=== PATIENT | female | born 1945 | race Caucasian/White ===

== ENCOUNTER → 2019-10-14 14:17 | Outpatient (CLI) | payer MEDICARE, OTHER, SELFPAY ==
--- NOTE | 2019-10-14 | DI.CT.S_ITS ---
PROCEDURE: CT LUMBAR SPINE WO CON INDICATIONS: Other spondylosis with radiculopathy, lumbosacral TECHNIQUE: Noncontrast 3 mm thick sections acquired from the T12 level to the sacrum. Sagittal and coronal reformats were constructed. For radiation dose reduction, the following was used: automated exposure control. COMPARISON: Outside Film, CR, XR LUMBAR SPINE 2 OR 3 VIEWS, 07/08/2019, 8:50. FINDINGS: Image quality: Excellent. Bones: There are 6 jja-vdv-padekim lumbar vertebral bodies. In order to be consistent with the prior study, the lowest 5 vertebrae are described as L1-L5, and the most superior nonrib-bearing vertebra is labeled as T12. Using this numbering system, there is mild degenerative anterolisthesis of L4 on L5, measuring 7 mm. There is trace degenerative retrolisthesis of L2 on L3, of L1 on L2, and T12 on L1. There is an old mild compression fracture of T11. No acute vertebral body compression fractures. No suspicious lytic or blastic bony lesions. No pars defects. T9-T10: No canal stenosis or foraminal stenosis. T10-T11: No canal stenosis or foraminal stenosis. T11-T12: No canal stenosis or foraminal stenosis. T12-L1: No canal stenosis or foraminal stenosis. L1-L2: Severe disc height loss. No canal stenosis. Moderate bilateral foraminal stenosis. L2-L3: Disc bulge. Moderate canal stenosis. Facet and ligament hypertrophy. Mild bilateral foraminal stenosis. L3-L4: Disc bulge and facet and ligament hypertrophy result in severe canal stenosis. Mild bilateral foraminal stenosis. L4-L5: Severe bilateral facet arthropathy. Mild anterolisthesis of L4 on L5. Posterior disc bulge. Mild canal stenosis. Mild to moderate bilateral foraminal stenosis. L5-S1: Bilateral facet hypertrophy. No canal stenosis. Mild bilateral foraminal stenosis. Soft tissues: No retroperitoneal masses or hematomas. Visualized aorta is normal in caliber. IMPRESSION: 1. Please note that there are actually 6 mws-kwm-ajzdoah lumbar vertebral bodies, but they aren't labeled as T12-L5. Therefore, if surgery is planned, careful correlation between imaging at the time of surgery and today's CT imaging is recommended. 2. Using the above numbering system, there is moderate canal stenosis at L2-L3, severe canal stenosis at L3-L4, and mild canal stenosis at L4-L5. 3. The level which is labeled as L4-L5 is the level that has 7 mm of anterolisthesis. Dictated by: Johan Mendez M.D. on 10/14/2019 at 17:22 Approved by: Johan Mendez M.D. on 10/14/2019 at 17:31
== END ==
PROVIDERS: PCP Internal Medicine; Visit Provider Orthopaedic Surgery Orthopaedic Surgery of the Spine
DX: M47.27 Other spondylosis with radiculopathy, lumbosacral region (principal); M47.26 Other spondylosis with radiculopathy, lumbar region; M48.061 Spinal stenosis, lumbar region without neurogenic claudication; M48.07 Spinal stenosis, lumbosacral region; M43.16 Spondylolisthesis, lumbar region
CPT/HCPCS: 72131

== ENCOUNTER → 2020-03-19 09:29 | Outpatient (CLI) | payer MEDICARE, OTHER, SELFPAY ==
[2020-03-19 23:34] LABS: COVID19 Sendout Not Detected (Not Detect)
== END ==
PROVIDERS: PCP Internal Medicine; Visit Provider Physician Assistant
DX: Z01.812 Encounter for preprocedural laboratory examination (principal)
CPT/HCPCS: 87635

== ENCOUNTER 2020-03-21 06:01 | Inpatient (IN) | payer MEDICARE, OTHER, SELFPAY ==
[2020-03-13 13:48] VITALS: BMI 34.7
[2020-03-21] VITALS (24 sets, daily range): BP systolic 75–165; BP diastolic 40–89; PULSE 82–101; RESP 10–28; TEMP 36.4–36.9; O2SAT 83–98; BMI 35.6
--- NOTE | 2020-03-21 | DI.RAD.S_ITS ---
PROCEDURE: XR LUMBAR SPINE 2-3V INDICATIONS: L3-4, L4-5 TLIF TECHNIQUE: 2 views of the lumbar spine were acquired. COMPARISON: None. FINDINGS: Bones: Postoperative study with transverse pedicle screws and vertical fixation rods crossing from L3-L5, with interbody cage disc prostheses devices at L3-4 and L4-L5 centrally positioned.. Soft tissues: Overlying bowel gas pattern is normal. No suspicious soft tissue calcifications. IMPRESSION: Normal alignment established after L3-L5 posterior fusion and interbody disc prosthesis placement. Dictated by: Jagjit Jalloh M.D. on 03/21/2020 at 11:28 Approved by: Jagjit Jalloh M.D. on 03/21/2020 at 11:29
[2020-03-21] MEDS: ALBUTEROL/IPRATROPIUM 3 ML AMPUL INH ×3 (07:31→20:49)
[2020-03-21] MEDS: LACTATED RINGERS 1,000 ML 42 ML IV ×3 (07:31→11:58)
[2020-03-21] MEDS: CLINDAMYCIN 900 MG/50 ML PIGGYBACK 50 MG IV ×2 (07:45→16:51)
--- NOTE | 2020-03-21 08:21 | SUR.OPER ---
Prone on spine table, head in foam head support, padded chest and pelvic supports, gel pad at knees, lower legs supported by pillows; nipples, genitalia and toes free of pressure, arms secured on foam padded arm boards at <90 degrees abduction. Tape over blanket at thigh secured to table.
[2020-03-21] MEDS: BUPIVACAINE LIPOSOME 266 MG/20 ML VIAL INJ (09:00)
[2020-03-21] MEDS: BUPIVACAINE 0.25% W/ EPI (PF) 10 ML VIAL 30 ML INJ (09:00)
--- NOTE | 2020-03-21 11:43 | PM.PREOP ---
Pre-operative Note COVID-19 COVID-19 status: Negative Result date/Date tested (Pos, Neg/Pending): 03/19/20 Interval Note History & Physical reviewed/Exam performed by Physician: Yes Changes to H&P: No
--- NOTE | 2020-03-21 11:44 | PM.OP.1 ---
Operative Date/Time/Diagnoses Date of procedure: 03/21/20 Time of procedure: 07:44 Pre-op diagnosis: 1. L3-4, L4-5 spondylolisthesis 2. L3-4, L4-5 spinal stenosis Post-op diagnosis: same Procedure & Clinicians Procedure: 1. L3-4, L4-5 Postero-lateral and posterior interbody fusion 2. L3-4, L4-5 interbody cage placement. 3. L3-4, L4-5 decompressive laminectomy with bilateral facetecomies 4. L3-4, L4-5 Posterior segmental instrumentation 5. [place] of bone marrow from iliac crest 6. Utilization of microsurgical technique and operating microscope Same procedure as scheduled: Yes Indications: Patient has been having chronic back pain and worsening lumbar radiculopathy. Patient failed multiple conservative management with worsening pain weakness and numbness in her lower extremity. Patient has been having difficulty performing activity of daily living. After discussing risks benefits of treatment options, patient elected proceed with surgery. Surgeon: Adrian Kang Conduit Mechanic: Linda Kelley'Brien Click Yes if Unassisted: No Anesthesia Type: General Operative Notes Closure Type: primary Specimen(s): none sent Prosthetic devices, grafts, tissues, transplants, or devices: Globus revolve screws, Rise cages Applied: catheter Estimated Blood Loss (mL): 150 Blood products transfused: none Procedure in detail: Patient was seen in the preoperative area. Risks and benefits of the surgery was discussed with the patient. Informed consent was obtained from the patient and placed in the chart. Surgical site was marked. Patient was taken to the operative room. General anesthesia was administered. Prophylactic antibiotic was given to the patient less than 30 min before the incision was made. Patient was placed into a prone position on the Felix table. Patient's back was then prepped and draped in the sterile fashion. Time-out was performed at this time. Using AP and lateral C-arm imaging the interval between L3-4, L4-5 was identified and marked on patient's back. A 2 inch incision 2 in from midline was made on the right side first. The fascia was incised in line with skin incision. Globus MARS retractors was placed inside the incision and docked onto the L3 and L4 lamina. Using microsurgical technique and operating microscope, a L3 and L4 laminectomy and L3-4, L4-5 facetectomy was performed using a Kerrison rongeur. The disc space at L3-4, L4-5 was identified. And a total diskectomy was performed at L3-4, L4-5 level. The endplates were decorticated using a rasp and shaver. Patient was found have severe central and neural foraminal stenosis which was fully decompressed after the laminectomy and facetectomy was completed. The total diskectomy and decortication was performed at L3-4, L4-5 level in order to to accomplish a L3-4, L4-5 fusion. The local bone from the laminectomy and facetectomy was saved for local bone grafting. After the total diskectomy and decortication was completed, Trifecta bone graft material was combined with local bone that was harvested earlier. At this time, a separate skin is incision was made over the iliac crest. A Jamshidi needle was inserted into the iliac crest through a separate skin incision. 5 cc of bone marrow aspiration was obtained through the separate skin incision using a Jamshidi needle from the iliac crest. The bone marrow aspiration was combined with local bone and the Trifecta bone grafting material. The bone grafting material was placed into the L3-4, L4-5 interbody space along with two cages, one expandable cage at each level. The cages were expanded to their maximum height using the torque limiting screwdriver. At this time a mirror image incision was made on the left side. The fascia was incised in line with the skin incision. Globus MARS retractor was inserted and docked onto the L3-4, L4-5 posterolateral gutter. Using the power drill, posterior-lateral decortication was performed at L3-4, L4-5 level until bleeding cortical bone was identified. The remaining bone grafting material was placed into the L3-4, L4-5 posterior lateral gutter he order to accomplish posterolateral fusion at the L3-4, L4-5 levels. Using the double C-arm technique, pedicle screws were placed into the L3, L4, L5 pedicles bilaterally. This was done by placing the Jamshidi needle into the pedicles, then placing the guidewires over the Jamshidi needle, and finally placing the cannulated screws over the guidewires bilaterally. After the pedicle screws were placed, 2 titanium rods was locked into the heads of the pedicle screws using locking caps and torque limiting screwdriver. Total 6 pedicles screws were placed. After all the hardware was placed, and confirmed with AP and lateral C-arm imaging, the wound was then irrigated with sterile normal saline and packed with Ray-Triny gauze for 3 min to accomplish hemostasis. After the gauze was removed the deep fascia was closed with #1 Vicryl suture. The subcutaneous layer was closed with 2-0 Vicryl. The skin was closed with skin zuleyka. Patient tolerated the procedure well. There were no complications. Complications: none Post-operative Condition: stable Disposition: PACU Plan for aftercare: Admit to inpatient hospital
[2020-03-21] MEDS: HYDROMORPHONE 2 MG INJ IV ×2 (11:50→12:10)
[2020-03-21] MEDS: ONDANSETRON 4 MG/2 ML INJ IV (11:51)
--- NOTE | 2020-03-21 12:23 | SUR.PHASEI ---
Addendum entered by Vibha Joyce R.N. 03/21/20 12:27: Addendum: Nasal trumpet to right nare to assist with oxygenation. Original Note: 1116 late entry: received patient from OR s/p TLIF. Patient with hypotension on arrival and unresponsive. Oxygen saturation 84% on room air. Jaw thrust performed and placed patient on 15 liters oxygen via simple face mask. Wheezing noted bilaterally. Patient with history of COPD but not oxygen dependent at home per OR nurse. Will continue to reassess.
--- NOTE | 2020-03-21 12:48 | SUR.PHASEI ---
Late entry: patient with blood noted in her mouth. Suctioned out mouth; no injury noted to tongue or lips. Small tia noted to the back of patient's upper palate, possibly from intubation. Patient denies any pain. Bleeding is minimal and controlled. Notified anethesia and receiving nurse.
[2020-03-21] MEDS: SODIUM CHLORIDE 0.9% 1,000 ML 100 ML IV (13:52)
--- NOTE | 2020-03-21 13:54 | PC.ADMIT ---
[facility] [address] Admission Note: The patient,Florencia Gandhi,75 y/o, was given written information regarding hospital policies, unit procedures and contact persons. Patient's smoking status: Current every day smoker. Vital Signs - 8 hr 03/21/20 07:02 03/21/20 11:16 03/21/20 11:19 Temperature 98.4 F 98.4 F Pulse Rate 93 H 82 87 Respiratory Rate 28 H 12 11 L Blood Pressure 165/89 H 75/40 L 86/43 L Pulse Oximetry 98 83 L 93 03/21/20 11:21 03/21/20 11:26 03/21/20 11:31 Temperature Pulse Rate 85 88 87 Respiratory Rate 12 11 L 12 Blood Pressure 91/42 L 95/53 L 102/54 L Pulse Oximetry 93 93 93 03/21/20 11:36 03/21/20 11:41 03/21/20 11:52 Temperature Pulse Rate 88 91 H 94 H Respiratory Rate 11 L 13 13 Blood Pressure 96/65 122/66 119/85 Pulse Oximetry 96 96 98 03/21/20 11:57 03/21/20 12:06 03/21/20 12:15 Temperature Pulse Rate 88 97 H 94 H Respiratory Rate 11 L 15 20 Blood Pressure 115/57 L 97/57 L 100/57 L Pulse Oximetry 97 96 98 03/21/20 12:21 03/21/20 12:26 03/21/20 12:31 Temperature Pulse Rate 94 H 92 H 86 Respiratory Rate 13 16 13 Blood Pressure 120/57 L 113/64 106/67 Pulse Oximetry 95 95 95 03/21/20 12:36 Temperature Pulse Rate 98 H Respiratory Rate 10 L Blood Pressure 115/69 Pulse Oximetry 96 Patient admitted to 212. States she feels a little loopy. Answers questions appropriately. RT in to assess patient and provided teaching on I.S. O2/nc weaned from 4l/nc to 2l/nc with sat 94%. Patient taking ice chips. IVF infusing as ordered. Rates pain 4/10 states is tolerable. Jennifer cdi.
--- NOTE | 2020-03-21 15:20 | PT.IIE ---
Current Diagnoses Spondylolisthesis, lumbar region (03/21/20) Other spondylosis with radiculopathy, lumbosacral region (03/21/20) Spinal stenosis, lumbar region without neurogenic claudication (03/21/20) Surgery Performed Operation Date: 03/21/20 07:45 Actual Procedures p L3-4, L4-5 TLIF w/ posterior instrumentation - Adrian Kang MD Surgical History (Last Updated 03/14/20 @ 09:25 by Nikki Packer RN) History of hysterectomy (Acute 2008) Hx of bilateral cataract extraction (Acute) Hx of cholecystectomy (Acute 1982) Presence urogenital implant (Acute 10/2015) Status post correction of deviated nasal septum (Acute 1977) Medical History (Last Updated 03/14/20 @ 09:26 by Nikki Packer RN) Anxiety (Acute) COPD (chronic obstructive pulmonary disease) (Acute) Depression (Acute) Diabetes (Acute) GERD (gastroesophageal reflux disease) (Acute) Heart murmur (Acute) HLD (hyperlipidemia) (Acute) HTN (hypertension) (Acute) Lower back pain (Acute) RAD (reactive airway disease) (Acute) 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) SCC (squamous cell carcinoma) (Acute) Sleep apnea (Acute) BETHANY (stress urinary incontinence, female) (Acute) Physical Therapy Inpatient Evaluation/Re-Eval M1 PT/OT-IP Prior Functional Status Start: 03/21/20 16:41 Freq: NEEDED Status: Active Protocol: Document 03/21/20 15:20 AB (Rec: 03/21/20 16:58 AB [id number]) Medical Review Prior Functional Status Medical History Reviewed Yes Communication able to make needs known Mobility and Gait pt stated that she is independent with all mobilities and ambulation without AD but occasionally uses SPC dependent on level of pain Social History Household Members significant other Living Arrangements House Number of Floors (Floors) Two Floors Number of Stairs To Enter/Railing? pt stays on main level of the house no steps to enter Home Environment Standard Height Toilet,Walk in Shower,Built-In Shower Seat Home Equipment Four Wheel Walker,Straight Cane,Hand Held Shower,Grab Bars Near Toilet,Grab Bars In Shower Employment Status Retired M2 PT-IP Current Condition Start: 03/21/20 16:41 Freq: NEEDED Status: Active Protocol: Document 03/21/20 15:20 AB (Rec: 03/21/20 16:58 AB [id number]) Physical Therapy Current Condition Current Condition Evaluation Date 03/21/20 Treatment Diagnosis L3-4,L4-5 posterolateral/post. fusion; lami; difficulty in walking Onset Date 03/21/20 Precautions Lumbar Precautions Log Roll,No Twisting,Limit Bending,Lifting Restriction of 10 lbs,Gait Belt above Incisional Area M3 PT-IP Subjective Start: 03/21/20 16:41 Freq: NEEDED Status: Active Protocol: Document 03/21/20 15:20 AB (Rec: 03/21/20 16:58 AB [id number]) Subjective Physical Therapy Visit Type Type Initial Evaluation Visit Start Time 15:20 Visit Stop Time 15:53 Total Visit Minutes 33 Number of MUSEUM EDUCATOR Visits 0 Physical Therapy Visit Comments Patient Comments pt is agreeable to do PT Therapy Pain Assessment Pain When Pain Assessed At Rest Pain Present Pain Present Pain Reported Location back Intensity 6 Scale Used Numeric (0 - 10) Pain Management Techniques Distraction,Modification of Treatment,Timing of Activity with Medications M4 PT-IP Mobility and Gait Start: 03/21/20 16:41 Freq: NEEDED Status: Active Protocol: Document 03/21/20 15:20 AB (Rec: 03/21/20 16:58 AB [id number]) PT-Bed Mobility Assessment Rolling Type of Rolling Log Rolling Level of Assist Minimal Assistance,1 Person Assistance Supine to Sit Supine to Sit Minimal Assistance Sit to Supine Sit to Supine Minimal Assistance PT-Transfer Assessment Sit to and From Stand Sit to and from Stand Moderate Assistance,1 Person Assistance,Use of Upper Extremities Equipment Transfer Assistive Device Bed Rail,Front Wheeled Walker Transfers Transfer Destination Chair Transfer Technique Stand Step Pivot Transfer Ability Level of Assist Moderate Assistance,1 Person Assistance,Use of Upper Extremities Comments Mobility Comments educated pt on back precautions and log roll bed mobility. pt completed supine to sit min A and max cues. pt was able to sit on EOB SBA. completed sit to stand mod A and cues and completed step transfer to chair using FWW mod A. pt with O2 on and unable to obtain O2 sat ready but with (+) wheezing. nurse in room. pt completed sit to stand from chair mod A and cues and ambulated in room ~ 15 ft. pt requested to go back to bed and ambulated back to bed using FWW. pt completed sit to supine min A and cues. positioned pt in bed. all light and table placed within reach. Gait Assessment Gait Gait Assistance Required: Moderate Assistance,1 Person Assist Distance (Feet) 15 Able to Maintain Weight Bearing Status Yes During Gait Assistive Devices Assistive Device Gait Belt,Front Wheeled Walker Orthotic/Prosthetic Devices or Brace: No Gait Deviations General Gait Pattern Antalgic,Decreased Stride Length,Decreased Feet Clearance,Step-to Gait Factors Limiting Gait Function Factors Limiting Gait Function Decreased Activity Tolerance, Decreased Strength,Limited Range of Motion,Pain,Poor Balance,Poor Safety Awareness, Respiratory Distress PT-Balance Assessment Sitting Balance and Reactions Static Sitting Balance Ability Good Dynamic Sitting Balance Ability Good Standing Balance and Reactions Static Standing Balance Ability Fair Dynamic Standing Balance Ability Fair Device Used FWW M5 PT-IP Objective Assessments Start: 03/21/20 16:41 Freq: NEEDED Status: Active Protocol: Document 03/21/20 15:20 AB (Rec: 03/21/20 16:58 AB [id number]) Orientation Orientation/Cognition Level of Alertness Alert Orientation Name,Place,Situation Safety Awareness Decreased Safety Awareness Memory Description No Deficits Noted Gross Range of Motion Lower Extremity ROM Assessment Within Functional Limits Strength Lower Extremity Strength Assessment Within Functional Limits Coordination Assessment Gross Coordination Gross Coordination WNL Sensation Assessment Sensation Gross Sensation WNL Muscle Tone Muscle Tone WNL Yes M6 PT-IP Treatment Start: 03/21/20 16:41 Freq: NEEDED Status: Active Protocol: Document 03/21/20 15:20 AB (Rec: 03/21/20 16:58 AB [id number]) Physical Therapy Treatment Education Education Provided Precautions,Weight Bearing Status,Post-Op Packet,Safety M7 PT-IP Assessment and Plan Start: 03/21/20 16:41 Freq: NEEDED Status: Active Protocol: Document 03/21/20 15:20 AB (Rec: 03/21/20 16:58 AB [id number]) PT Summary Assessment and Plan Potential Rehabilitation Potential Good Status of Condition at Evaluation Stable Summary Impairments Pain,ROM,Strength,Balance, Coordination,Sensation,Tone, Cognition,Bed Mobility, Transfers,Gait,Activity Tolerance Assessment Summary pt just had back surgery this morning and is requiring mod A with mobility using FWW. pt does not have a FWW at home and prefer to use a 4WW. will need to assess mobility and safety with use of 4WW if pt is appropriate. will have to conduct caregiver training if needed. pt plans to go home and plans to have her significant other assist her. will continue to assess progress. Goals Bed Mobility Goal Independent Transfer Goal Independent,Front Wheeled Walker,Four Wheeled Walker Gait Goal Independent,Front Wheel Walker ,Four Wheel Walker Gait Distance 150 Days to Meet Goals 5 Frequency of Treatment Frequency Of Treatment Twice a Day Treatment Plan Physical Therapy Treatment Plan Bed Mobility Training,Transfer Training,Gait Training, Therapeutic Exercise,Balance Retraining,Post Op Education, Discharge Planning,Hot or Cold Pack,Neuromuscular Re-ed, Coordination Retraining,Manual Therapy Recommendations To Nursing Amount of Assist Needed 1 Person Assist Discharge Recommendations PT Discharge Recommendations Home with Assistance Equipment Needed for Home Before FWW if not safe with 4WW Discharge Transportation Needs at Discharge Private Vehicle
[2020-03-21] MEDS: HYDROMORPHONE 0.5 MG INJ IV ×3 (15:45→23:48)
[2020-03-21] MEDS: ACETAMINOPHEN 325 MG TABLET 650 MG PO (19:31)
[2020-03-21] MEDS: PANTOPRAZOLE 20 MG TABLET PO (21:49)
[2020-03-21] MEDS: SENNOSIDES 8.6 MG TABLET 17.2 MG PO (21:49)
[2020-03-21] MEDS: DOCUSATE 100 MG CAPSULE PO (21:49)
[2020-03-21] MEDS: LORazepam 1 MG TABLET 0.5 MG PO (21:53)
--- NOTE | 2020-03-21 22:56 | PC.NURSE ---
EVENING SHIFT Report received, care assumed 1530. A&Ox3. VSS. Denied pain upon intial contact. At one point, patient was experiencing pain and anxiety and attempted to hit her call light, but pushed the wrong button. By the time we responded, she was quite tearful and agitated. Expressed anxiety preoperatively as well as postoperatively. She was able to calm with pain medication and comfort measures. Stood at bedside with walker and standby assist to stretch her back. Responded to interventions appropriately and reported decreased pain and anxiety. Was also offered Ativan for anxiety, which she received at bedtime. Pulse ox and 2LNC kept on throughout shift related to medical history of COPD and COLIN.
[2020-03-22] VITALS (10 sets, daily range): BP systolic 109–137; BP diastolic 53–70; PULSE 53–101; RESP 16–20; TEMP 36.4–37.9; O2SAT 92–99
[2020-03-22] MEDS: CLINDAMYCIN 900 MG/50 ML PIGGYBACK 50 MG IV
[2020-03-22] MEDS: ACETAMINOPHEN 325 MG TABLET 650 MG PO ×4 (02:12→23:57)
[2020-03-22] MEDS: HYDROMORPHONE 0.5 MG INJ IV ×2 (05:14→20:15)
--- NOTE | 2020-03-22 06:24 | PC.NURSE ---
Patient VSS, lung sounds expiritory wheezing and rhonchi on the right upper lobe posterior. 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 Patient may need oral dilaudid. Pain has gotten to 7/10. Patient requested black stay in until PT works with her. Bandage on incision was saturated and changed to coversite dressing by Cindy Perez RN. Patient has been able to get up and stand at bedside w/ 1 person assist and likes to stand up to move around with no problems. Bed is low and locked, call light within reach, bed alarm active.
[2020-03-22 06:25] LABS: Hematocrit 28.5 % (36-46); Hemoglobin 9.5 g/dL (12.0-16.0)
[2020-03-22] MEDS: ALBUTEROL/IPRATROPIUM 3 ML AMPUL INH ×2 (07:53→20:01)
[2020-03-22] MEDS: PANTOPRAZOLE 20 MG TABLET PO ×2 (08:08→20:50)
[2020-03-22] MEDS: DOCUSATE 100 MG CAPSULE PO ×2 (08:08→20:50)
[2020-03-22] MEDS: buPROPion SR 150 MG TAB 300 MG PO (08:08)
[2020-03-22] MEDS: PRAVASTATIN 20 MG TABLET 40 MG PO (08:08)
--- NOTE | 2020-03-22 08:24 | PM.PN.1 ---
Exam Vital Signs (past 8 hours): - 03/22/20 04:00 03/22/20 08:03 Temperature 98.6 F Pulse Rate 101 H 75 Respiratory Rate 19 20 Blood Pressure 137/54 L Pulse Oximetry 99 97 Oxygen Delivery Method Nasal Cannula Oxygen Flow Rate 2 Objective Labs Result Diagrams: 03/22/20 05:50 Labs: Laboratory Results - last 24 hr 03/22/20 05:50 Hgb 9.5 L Hct 28.5 L Assessment & Plan Assessment & Plan narrative: POD#1 s/p L3-5 TLIF. Doing well. Dressing clean and dry. Neuro intact and no s/s of DVT. PT today and possible d/c tomorrow once cleared. Quality VTE Deep Vein Thrombosis/Pulmonary Embolism Present on Admission: No
--- NOTE | 2020-03-22 10:12 | CM.DANOTE ---
DCP; Case received, EMR reviewed and met with patient. Introduced self and role. Was able to meet with patient and obtain information regarding her baseline activity level prior to surgery. DCP assessment completed with information currently available. Patient is a 75 year old female who admitted yesterday morning to the care of the orthopedic team. PCP: Dr. Tanner. Payer: confirmed: Medicare/[facility]. Patient came to the hospital for a surgical procedure. She had L3-4, L4-5 postero interbody fusion. Patient has had history of chronic back pain. Met with patient in her room. She is alert and oriented. She has a four wheel walker available for use, but was not using prior to surgery. She resides in [place] with her significant other, Raghu Estrada. She confirmed that he will be assisting her for any needs when she goes home. She has no stairs in her home. P: DCP to continue to follow. Plan is for home, potentially tomorrow according to recent note from orthopedist, if stable. She will continue to work with Angelina Osman RN/Aprn
--- NOTE | 2020-03-22 10:35 | PT.IPTN ---
Current Diagnoses Spondylolisthesis, lumbar region (03/21/20) Other spondylosis with radiculopathy, lumbosacral region (03/21/20) Spinal stenosis, lumbar region without neurogenic claudication (03/21/20) Surgery Performed Operation Date: 03/21/20 07:45 Actual Procedures p L3-4, L4-5 TLIF w/ posterior instrumentation - Adrian Kang MD Physical Therapy Treatment Note M2 PT-IP Current Condition Start: 03/21/20 16:41 Freq: NEEDED Status: Active Protocol: Document 03/21/20 15:20 AB (Rec: 03/21/20 16:58 AB [id number]) Physical Therapy Current Condition Current Condition Evaluation Date 03/21/20 Treatment Diagnosis L3-4,L4-5 posterolateral/post. fusion; lami; difficulty in walking Onset Date 03/21/20 Precautions Lumbar Precautions Log Roll,No Twisting,Limit Bending,Lifting Restriction of 10 lbs,Gait Belt above Incisional Area M3 PT-IP Subjective Start: 03/21/20 16:41 Freq: NEEDED Status: Active Protocol: Document 03/22/20 10:35 AB (Rec: 03/22/20 12:12 AB [id number]) Subjective Physical Therapy Visit Type Type Treatment Note Visit Start Time 10:35 Visit Stop Time 11:06 Total Visit Minutes 29 Number of LOADER OPERATOR Visits 0 Physical Therapy Visit Comments Patient Comments pt is willing to do PT. stated that she does not have pain when she is not moving but increases to a 7/10 when she moves Therapy Pain Assessment Pain When Pain Assessed During Mobility Pain Present Pain Present Pain Reported Location back Intensity 7 Scale Used Numeric (0 - 10) Pain Management Techniques Distraction,Modification of Treatment,Re-positioning M4 PT-IP Mobility and Gait Start: 03/21/20 16:41 Freq: NEEDED Status: Active Protocol: Document 03/22/20 10:35 AB (Rec: 03/22/20 12:12 AB [id number]) PT-Bed Mobility Assessment Rolling Type of Rolling Log Rolling Level of Assist Standby Assistance Sit to Supine Sit to Supine Standby Assistance PT-Transfer Assessment Sit to and From Stand Sit to and from Stand Contact Guard Assistance, Moderate Assistance,1 Person Assistance,Use of Upper Extremities Equipment Transfer Assistive Device Gait Belt,Front Wheeled Walker Orthotic/Prosthetic Devices or Brace: No Transfers Transfer Destination Bed Transfer Technique ambulated using FWW Transfer Ability Level of Assist Contact Guard Assistance,1 Person Assistance,Use of Upper Extremities Comments Mobility Comments pt sitting on chair and agreed to do PT. completed sit to stand with initial mod A. pt educated on techniques for sit to stand and pt completed sit <> stand x 4 and was able to complete CGA towards the end of reps. ambulated in room using FWW CGA ~ 30 ft. pt prefers to use a 4WW. assessed mobility using 4WW. 4WW adjusted and educated on how to use 4WW/locking/ unlocking brakes. pt ambulated ~ 100 ft using 4WW CGA and cues. pt requested to go back to bed after ambulation and with c/o increase back pain. completed sit to supine SBA. positioned pt in bed. call light and table placed within reach. Gait Assessment Gait Gait Assistance Required: Contact Guard Assist,1 Person Assist Distance (Feet) 100 Able to Maintain Weight Bearing Status Yes During Gait Assistive Devices Assistive Device Gait Belt,Front Wheeled Walker ,4 Wheeled Walker Orthotic/Prosthetic Devices or Brace: No Gait Deviations General Gait Pattern Antalgic,Decreased Stride Length,Decreased Feet Clearance,Step-to Gait Factors Limiting Gait Function Factors Limiting Gait Function Decreased Activity Tolerance, Decreased Strength,Limited Range of Motion,Pain,Poor Balance Comments Gait Comments pls refer to mobility section for details M5 PT-IP Objective Assessments Start: 03/21/20 16:41 Freq: NEEDED Status: Active Protocol: Document 03/21/20 15:20 AB (Rec: 03/21/20 16:58 AB [id number]) Orientation Orientation/Cognition Level of Alertness Alert Orientation Name,Place,Situation Safety Awareness Decreased Safety Awareness Memory Description No Deficits Noted Gross Range of Motion Lower Extremity ROM Assessment Within Functional Limits Strength Lower Extremity Strength Assessment Within Functional Limits Coordination Assessment Gross Coordination Gross Coordination WNL Sensation Assessment Sensation Gross Sensation WNL Muscle Tone Muscle Tone WNL Yes M6 PT-IP Treatment Start: 03/21/20 16:41 Freq: NEEDED Status: Active Protocol: Document 03/22/20 10:35 AB (Rec: 03/22/20 12:12 AB [id number]) Physical Therapy Treatment Education Education Provided Precautions,Safety M7 PT-IP Assessment and Plan Start: 03/21/20 16:41 Freq: NEEDED Status: Active Protocol: Document 03/22/20 10:35 AB (Rec: 03/22/20 12:12 AB [id number]) PT Summary Assessment and Plan Potential Rehabilitation Potential Good Summary Impairments Pain,ROM,Strength,Balance, Coordination,Bed Mobility, Transfers,Gait,Activity Tolerance Progress Towards Goals Slow Progress due to Pain Assessment Summary pt requiring CGA with mobility but with c/o increase pain affecting activity tolerance. pt plans to go home and her significant other Mariano will assist her. will conduct caregiver training when appropriate. Goals Bed Mobility Goal Independent Transfer Goal Independent,Front Wheeled Walker,Four Wheeled Walker Gait Goal Independent,Front Wheel Walker ,Four Wheel Walker Gait Distance 150 Days to Meet Goals 5 Frequency of Treatment Frequency Of Treatment Twice a Day Treatment Plan Physical Therapy Treatment Plan Bed Mobility Training,Transfer Training,Gait Training, Therapeutic Exercise,Balance Retraining,Post Op Education, Discharge Planning,Hot or Cold Pack,Neuromuscular Re-ed, Coordination Retraining,Manual Therapy Recommendations To Nursing Amount of Assist Needed 1 Person Assist Discharge Recommendations PT Discharge Recommendations Home with Assistance Transportation Needs at Discharge Private Vehicle
[2020-03-22] MEDS: LOSARTAN 25 MG TABLET PO (10:47)
[2020-03-22] MEDS: HYDROMORPHONE 2 MG TABLET PO ×5 (11:59→23:57)
[2020-03-22] MEDS: LITHIUM OROTATE 2 EACH PO ×2 (12:00→20:52)
--- NOTE | 2020-03-22 14:41 | PT.IPTN ---
Current Diagnoses Spondylolisthesis, lumbar region (03/21/20) Other spondylosis with radiculopathy, lumbosacral region (03/21/20) Spinal stenosis, lumbar region without neurogenic claudication (03/21/20) Surgery Performed Operation Date: 03/21/20 07:45 Actual Procedures p L3-4, L4-5 TLIF w/ posterior instrumentation - Adrian Kang MD Physical Therapy Treatment Note M2 PT-IP Current Condition Start: 03/21/20 16:41 Freq: NEEDED Status: Active Protocol: Document 03/21/20 15:20 AB (Rec: 03/21/20 16:58 AB [id number]) Physical Therapy Current Condition Current Condition Evaluation Date 03/21/20 Treatment Diagnosis L3-4,L4-5 posterolateral/post. fusion; lami; difficulty in walking Onset Date 03/21/20 Precautions Lumbar Precautions Log Roll,No Twisting,Limit Bending,Lifting Restriction of 10 lbs,Gait Belt above Incisional Area M3 PT-IP Subjective Start: 03/21/20 16:41 Freq: NEEDED Status: Active Protocol: Document 03/22/20 14:10 KS (Rec: 03/22/20 15:21 KS [id number]) Subjective Physical Therapy Visit Type Type Treatment Note Visit Start Time 14:10 Visit Stop Time 14:41 Total Visit Minutes 31 Number of APPLIED TECHNOLOGIST Visits 1 Physical Therapy Visit Comments Patient Comments Pt agreeable to work w/ therapy. Co treat w/ OT. Therapy Pain Assessment Pain When Pain Assessed During Mobility Pain Present Pain Present Pain Reported Location back Intensity 9 Scale Used 3/10 at reast, 9/10 w/ mobility Pain Behaviors Guarding,Wincing Pain Management Techniques Modification of Treatment,Re- positioning,Timing of Activity with Medications M4 PT-IP Mobility and Gait Start: 03/21/20 16:41 Freq: NEEDED Status: Active Protocol: Document 03/22/20 14:10 KS (Rec: 03/22/20 15:21 KS [id number]) PT-Bed Mobility Assessment Rolling Type of Rolling Log Rolling Level of Assist Contact Guard Assistance,1 Person Assistance Supine to Sit Supine to Sit Contact Guard Assistance,1 Person Assistance,Bedrails Sit to Supine Sit to Supine Contact Guard Assistance,1 Person Assistance Scooting Scooting to Edge of Bed Contact Guard Assistance PT-Transfer Assessment Sit to and From Stand Sit to and from Stand Contact Guard Assistance, Minimal Assistance,1 Person Assistance,Use of Upper Extremities Equipment Transfer Assistive Device Gait Belt,Front Wheeled Walker Orthotic/Prosthetic Devices or Brace: No Transfers Transfer Destination Bed Transfer Technique ambulated using 4WW Transfer Ability Level of Assist Contact Guard Assistance,1 Person Assistance,Use of Upper Extremities Comments Mobility Comments Pt supine in bed upon arrival from therapy and agreeable to work w/ PT and OT. Able to recall 3/3 precautions. Pt CGA for logroll to L and CGA w/ use of bed rails for sidelying to sit. Pt then CGA for scooting to edge of bed and sit<>stand w/ 4WW w/ cues for hand placement. Pt then ambulated to sink CGA and performed hair brushing, able to maintain standing balance while at sink . Pt then ambulated ~50 ft total w/ seated rest break required after ~30ft. Pt ambulated back to bed and stand<>sit in bed CGA w/ cues for slow descent and hand placement. Pt then sit<>stand once more to adjust gown Min A . Pt CGA for logroll and repositioning back in bed. Instructed pt in ankle pumps, quad sets, and glute sets to improve blood flow and LE strengthening. Pt left in room w/ OT. Gait Assessment Gait Gait Assistance Required: Contact Guard Assist,Minimum Assistance,1 Person Assist Distance (Feet) 50 Able to Maintain Weight Bearing Status Yes During Gait Assistive Devices Assistive Device Gait Belt,4 Wheeled Walker Orthotic/Prosthetic Devices or Brace: No Gait Deviations General Gait Pattern Antalgic,Decreased Stride Length,Decreased Feet Clearance,Step-to Gait Factors Limiting Gait Function Factors Limiting Gait Function Decreased Activity Tolerance, Decreased Strength,Limited Range of Motion,Pain,Poor Balance Comments Gait Comments Pt ambulated ~30 ft w/ 4WW and CGA and w/ cues for quad activation and upright posture . After ~30 ft pt had knee buckling and requested to sit. Min A x2 for pt pivot and stand<>sit on 4WW. Pt took 3 min rest break before ambulating ~20 ft back to room . Pt reported 9/10 pain w/ ambulation that decreased to 3 /10 upon sitting. PT-Balance Assessment Sitting Balance and Reactions Static Sitting Balance Ability Good Dynamic Sitting Balance Ability Good Standing Balance and Reactions Static Standing Balance Ability Fair Dynamic Standing Balance Ability Fair Device Used FWW M5 PT-IP Objective Assessments Start: 03/21/20 16:41 Freq: NEEDED Status: Active Protocol: Document 03/21/20 15:20 AB (Rec: 03/21/20 16:58 AB [id number]) Orientation Orientation/Cognition Level of Alertness Alert Orientation Name,Place,Situation Safety Awareness Decreased Safety Awareness Memory Description No Deficits Noted Gross Range of Motion Lower Extremity ROM Assessment Within Functional Limits Strength Lower Extremity Strength Assessment Within Functional Limits Coordination Assessment Gross Coordination Gross Coordination WNL Sensation Assessment Sensation Gross Sensation WNL Muscle Tone Muscle Tone WNL Yes M6 PT-IP Treatment Start: 03/21/20 16:41 Freq: NEEDED Status: Active Protocol: Document 03/22/20 14:10 KS (Rec: 03/22/20 15:21 KS [id number]) Physical Therapy Treatment Exercises Exercises Ankle Pumps,Gluteal Sets,Quad Sets Education Education Provided Precautions,Post-Op Packet, Safety M7 PT-IP Assessment and Plan Start: 03/21/20 16:41 Freq: NEEDED Status: Active Protocol: Document 03/22/20 14:10 KS (Rec: 03/22/20 15:21 KS [id number]) PT Summary Assessment and Plan Potential Rehabilitation Potential Good Summary Impairments Pain,ROM,Strength,Balance, Coordination,Bed Mobility, Transfers,Gait,Activity Tolerance Progress Towards Goals Slow Progress due to Pain Assessment Summary Pt still having high level of pain during mobility. CGA for logroll and sit<>stand from bed on first attempt. CGA for ambulation ~30 ft before requiring Min A x2 for stand<> sit on 4WW d/t pts reported pain and BLE weakness/knee buckling. Pt ambulated ~20 ft back to room CGA w/ cues for upright posture and quad activation. Pt returned to room, CGA for stand<>sit and Min A sit<>stand from bed to fix gown. CGA for logroll back into bed. Pt instructed to perform LE strengthening exercises to improve endurance and tolerance for activity. Pt would benefit from HHPT or OPPT to assess strength deficits. Will conduct caregiver training tomorrow and continue to assess pts progress. Goals Bed Mobility Goal Independent Transfer Goal Independent,Front Wheeled Walker,Four Wheeled Walker Gait Goal Independent,Front Wheel Walker ,Four Wheel Walker Gait Distance 150 Days to Meet Goals 5 Frequency of Treatment Frequency Of Treatment Twice a Day Treatment Plan Physical Therapy Treatment Plan Bed Mobility Training,Transfer Training,Gait Training, Therapeutic Exercise,Balance Retraining,Post Op Education, Discharge Planning,Hot or Cold Pack,Neuromuscular Re-ed, Coordination Retraining,Manual Therapy Recommendations To Nursing Amount of Assist Needed 1 Person Assist Discharge Recommendations PT Discharge Recommendations Home with Assistance Equipment Needed for Home Before FWW if not safe with 4WW Discharge Transportation Needs at Discharge Private Vehicle
--- NOTE | 2020-03-22 14:54 | OT.IP.EVAL ---
Current Diagnoses Spondylolisthesis, lumbar region (03/21/20) Other spondylosis with radiculopathy, lumbosacral region (03/21/20) Spinal stenosis, lumbar region without neurogenic claudication (03/21/20) Surgery Performed Operation Date: 03/21/20 07:45 Actual Procedures p L3-4, L4-5 TLIF w/ posterior instrumentation - Adrian Kang MD Past Medical History (Last Updated 03/14/20 @ 09:26 by Nikki Packer RN) Anxiety (Acute) COPD (chronic obstructive pulmonary disease) (Acute) Depression (Acute) Diabetes (Acute) GERD (gastroesophageal reflux disease) (Acute) Heart murmur (Acute) HLD (hyperlipidemia) (Acute) HTN (hypertension) (Acute) Lower back pain (Acute) RAD (reactive airway disease) (Acute) 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) SCC (squamous cell carcinoma) (Acute) Sleep apnea (Acute) BETHANY (stress urinary incontinence, female) (Acute) Surgical History (Last Updated 03/14/20 @ 09:25 by Nikki Packer RN) History of hysterectomy (Acute 2008) Hx of bilateral cataract extraction (Acute) Hx of cholecystectomy (Acute 1982) Presence urogenital implant (Acute 10/2015) Status post correction of deviated nasal septum (Acute 1977) Occupational Therapy Inpatient Evaluation/Re-Eval M1 PT/OT-IP Prior Functional Status Start: 03/21/20 16:41 Freq: NEEDED Status: Active Protocol: Document 03/21/20 15:20 AB (Rec: 03/21/20 16:58 AB [id number]) Medical Review Prior Functional Status Medical History Reviewed Yes Communication able to make needs known Mobility and Gait pt stated that she is independent with all mobilities and ambulation without AD but occasionally uses SPC dependent on level of pain Social History Household Members significant other Living Arrangements House Number of Floors (Floors) Two Floors Number of Stairs To Enter/Railing? pt stays on main level of the house no steps to enter Home Environment Standard Height Toilet,Walk in Shower,Built-In Shower Seat Home Equipment Four Wheel Walker,Straight Cane,Hand Held Shower,Grab Bars Near Toilet,Grab Bars In Shower Employment Status Retired M1 PT/OT-IP Prior Functional Status Start: 03/22/20 15:25 Freq: NEEDED Status: Active Protocol: Document 03/22/20 14:10 [facility] (Rec: 03/22/20 15:44 [facility] [id number]) Medical Review Prior Functional Status Medical History Reviewed Yes Communication able to make needs known Mobility and Gait pt stated that she is independent with all mobilities and ambulation without AD but occasionally uses SPC dependent on level of pain. Pt states having a harder time to stand up at times. Activities of Daily Living and IADL's Pt states needing assist for socks from significant other. Social History Household Members significant other Living Arrangements House Number of Floors (Floors) Two Floors Number of Stairs To Enter/Railing? pt stays on main level of the house no steps to enter Home Environment Standard Height Toilet,Walk in Shower,Built-In Shower Seat Home Equipment Four Wheel Walker,Straight Cane,Hand Held Shower,Long Handled Sponge,Long Handled Shoe Horn,Associate Theatre Professor,Grab Bars Near Toilet,Grab Bars In Shower Employment Status Retired M2 OT-IP Current Condition Start: 03/22/20 15:25 Freq: Status: Active Protocol: Document 03/22/20 14:10 [facility] (Rec: 03/22/20 15:44 [facility] [id number]) Occupational Therapy Current Condition Current Condition Evaluation Date 03/22/20 Treatment Diagnosis L3-4 posterolateral/post fusion, lami, decreased self care and mobility Post Operative Precautions Lumbar Precautions Log Roll,No Twisting,Limit Bending,Lifting Restriction of 10 lbs,Gait Belt above Incisional Area M3 OT- IP Subjective and Pain Start: 03/22/20 15:25 Freq: Status: Active Protocol: Document 03/22/20 14:10 [facility] (Rec: 03/22/20 15:44 [facility] [id number]) OT- Subjective Occupational Therapy Visit Type Type Initial Evaluation Visit Start Time 14:10 Visit Stop Time 14:54 Total Visit Minutes 44 Occupational Therapy Visit Comments Patient Comments Pt too tired to do OT eval in AM and went back with HOSTED SERVICES ANALYST in PM and pt agreed to be seen. Patient/Caregiver Goals To go home. OT Pain Assessment Pain When Pain Assessed During Mobility Pain Present Pain Present Pain Reported Location back Intensity 9 Scale Used Numeric (0 - 10) M4 OT- IP ADL's Start: 03/22/20 15:25 Freq: Status: Active Protocol: Document 03/22/20 14:10 [facility] (Rec: 03/22/20 15:44 [facility] [id number]) OT [id number] Comments OT Self-Feeding Comments Not at meal time. OT ADL-Grooming General Evaluation Grooming Ability Standby Assistance Areas Needing Assistance Retrieving/Set-up of Grooming Items Comments OT Grooming Comments SBA with 4ww. Educated for back precaution needs to spit into a cup or bend at her hips. OT ADL-Dressing General Eval Lower Body Dressing Ability Maximum Assistance Areas Needing Assistance Socks Comments OT Dressing Comments Educated of LB dressing equipment to use recovery specialist to assist to help get clothing items over her feet. Suggested to attach her recovery specialist to the 4ww so able to use as needed. Showed pt sock aid and pt states will not be wearing socks or that her S. O. will assist. OT ADL-Toileting General Evaluation Toileting Ability Total Assistance Comments OT Toileting Comments Price in. Educated may be beneficial to have a BSC next to the bed as pt states having to use the bathroom every 2 hours. In addition would be helpful to wear pads at night. In addition would be easier to stand to wipe. Pt states at times was difficult to wipe after a bowel movement and showed pt toilet paper aid that may increase her ease and independence for hygiene needs. OT ADL-Bathing Comments OT Bathing Comments Not at this time. M5 OT- IP IADL's Start: 03/22/20 15:25 Freq: Status: Active Protocol: Document 03/22/20 14:10 [facility] (Rec: 03/22/20 15:44 [facility] [id number]) OT-Instrumental Activities of Daily Living Deficits IADL Deficits Identified Deficits Home Safety Awareness Awareness of Need for Assistance at Home Good Awareness Ability to Problem Solve Emergency Able to Problem Solve Situations Medication Management Medication Management No Deficits Identified Money Management Money Management No Deficits Identified Meal Preparation Meal Preparation Caregiver Provides Assist Application Developer Application Developer Caregiver Provides Assist Driving Driving Caregiver Provides Assist M6 OT- IP Functional Cognition Start: 03/22/20 15:25 Freq: Status: Active Protocol: Document 03/22/20 14:10 [facility] (Rec: 03/22/20 15:44 [facility] [id number]) Cognitive Factors Limiting Selfcare Function Cognitive Ability Level of Alertness Alert Patient Orientation Name,Place,Situation Attention Span Ability Capable of Focused Attention, Capable of Sustained Attention Ability to Follow Commands Able to Follow One Step Commands Memory Description No Deficits Noted Safety Awareness Decreased Ability to Apply Precautions Cognitive Comments Cognitive Assessment Comments Pt initially having difficulty to recall all back precautions and mainly needing reminders to keep form twisting especially while turning around to sit onto her 4WW. OT- Vision and Hearing OT- Hearing Assessment OT- Hearing Assessment WFL M7 OT- IP Mobility and Balance Start: 03/22/20 15:25 Freq: Status: Active Protocol: Document 03/22/20 14:10 [facility] (Rec: 03/22/20 15:44 [facility] [id number]) OT- Bed Mobility Assessment Rolling Type of Rolling Roll to Left Level of Assistance Contact Guard Assistance Supine to Sit Supine to Sit Assist Contact Guard Assistance Sit to Supine Sit to Supine Assist Contact Guard Assistance OT-Transfer Assessment Sit to and From Stand Sit to and from Stand Contact Guard Assistance Transfers Transfer Ability Contact Guard Assistance Technique Transfer Destination Bed Transfer Technique Stand Step Pivot Devices Transfer Assistive Devices Gait Belt,4 Wheeled Walker Comments Mobility Comments Pt increased time and CGA for bed mobility , pt states has a 2x4 to hold to on the side of the bed to help to roll. Pt needing SUSAN x2 as needing to sit down while in the hallway while walking with 4WW and needing two person assist as pt unsteady on her feet to turn all the way around to sit to 4WW. Pt able to tolerate 30ft at a time. OT- Gait Assessment Gait Gait Assistance Required: Contact Guard Assist,1 Person Assist OT- Balance Assessment Sitting Balance and Reactions Static Sitting Balance Ability Good Dynamic Sitting Balance Ability Fair Standing Balance and Reactions Static Standing Balance Ability Fair M8 OT- IP Objective Assessments Start: 03/22/20 15:25 Freq: Status: Active Protocol: Document 03/22/20 14:10 [facility] (Rec: 03/22/20 15:44 [facility] [id number]) OT Gross Range of Motion Upper Extremity Range of Motion Assessment Within Functional Limits M9 OT- IP Assessment and Plan Start: 03/22/20 15:25 Freq: Status: Active Protocol: Document 03/22/20 14:10 [facility] (Rec: 03/22/20 15:44 [facility] [id number]) OT Summary Assessment and Plan Potential Rehabilitation Potential Good Analytic Complexity at Evaluation Low Summary OT Impairments Pain,Balance,Functional Mobility,Grooming,Dressing, Toileting,Bathing,Toilet Transfers,Shower Transfers, Activity Tolerance Progress Towards Goals Progressing Toward Goals Assessment Summary Pt low complexity and main barrier after S/P L3-4, L4-5 postrolateral/post fusion lami are pain, decreased activity tolerance and now needing one person assist for all needs. Pt states has a supportive significant other who will not ne able to lift her but able to provide assist. Pt's S. O to come to caregiver training tomorrow at 10AM. Pt would benefit from continued OT to work on safety, incorporation of back precautions for ADL needs. Pt to go home with pt' s S.O pending caregiver training. Goals Grooming Goal Independent Dressing Goal Independent Toileting Goal Independent Bathing Goal Standby Assistance Toilet Transfer Goal Independent Shower Transfer Goal Independent Patient/Caregiver Education Goal Demonstrate Post-Op Precautions,Caregiver Independent Assisting Patient Frequency of Treatment Frequency Of Treatment Once a Day Treatment Plan OT Treatment Plan ADL Training,Functional Cognition Training,Functional Mobility,Patient/Family Education,Discharge Planning Discharge Recommendations OT Discharge Recommendations Home with Assistance Other Discharge Recommendations Pending progress may benefit from home health. Home Equipment Needs BSC, shower chair, toilet paper aid Transportation Needs at Discharge Private Vehicle
[2020-03-22] MEDS: MAG HYDROX/ALUM/SIMETH 30 ML UDC PO (17:08)
[2020-03-22] MEDS: SODIUM CHLORIDE 0.9% FLUSH 10 ML IV (20:46)
[2020-03-22] MEDS: hydrOXYzine pamoate 25 MG CAPSULE PO (20:50)
[2020-03-22] MEDS: SENNOSIDES 8.6 MG TABLET 17.2 MG PO (20:50)
[2020-03-23] VITALS (10 sets, daily range): BP systolic 111–141; BP diastolic 52–69; PULSE 65–97; RESP 15–20; TEMP 36.3–37.7; O2SAT 91–95
[2020-03-23] MEDS: HYDROMORPHONE 2 MG TABLET PO ×5 (03:26→23:37)
[2020-03-23] MEDS: ALBUTEROL/IPRATROPIUM 3 ML AMPUL INH ×3 (08:19→20:29)
[2020-03-23] MEDS: HYDROMORPHONE 0.5 MG INJ IV (08:44)
[2020-03-23] MEDS: LOSARTAN 25 MG TABLET PO (08:44)
[2020-03-23] MEDS: LITHIUM OROTATE 2 EACH PO ×2 (08:45→20:36)
[2020-03-23] MEDS: PRAVASTATIN 20 MG TABLET 40 MG PO (08:45)
[2020-03-23] MEDS: buPROPion SR 150 MG TAB 300 MG PO (08:45)
[2020-03-23] MEDS: PANTOPRAZOLE 20 MG TABLET PO ×2 (08:45→20:35)
[2020-03-23] MEDS: DOCUSATE 100 MG CAPSULE PO ×2 (08:45→20:35)
[2020-03-23] MEDS: SODIUM CHLORIDE 0.9% FLUSH 10 ML IV ×2 (08:46→20:36)
--- NOTE | 2020-03-23 09:59 | PM.PN.1 ---
Exam Vital Signs (past 8 hours): - 03/23/20 04:15 03/23/20 08:20 03/23/20 08:27 Temperature 98.2 F 98.6 F Pulse Rate 93 H 97 H 97 H Respiratory Rate 16 17 20 Blood Pressure 129/52 L 141/55 H Pulse Oximetry 92 95 93 03/23/20 08:44 Temperature Pulse Rate 65 Respiratory Rate Blood Pressure 141/55 H Pulse Oximetry Oxygen Delivery Method Room Air Oxygen Flow Rate 2 Objective Labs Result Diagrams: 03/22/20 05:50 Assessment & Plan Assessment & Plan narrative: POD#2 s/p L3-5 TLIF. Doing well. Will plan for discharge once cleared by PT/OT Dressing clean and dry. Neuro intact on exam. No s/s of DVT. Quality VTE Deep Vein Thrombosis/Pulmonary Embolism Present on Admission: No
--- NOTE | 2020-03-23 10:39 | PT.IPTN ---
Current Diagnoses Spondylolisthesis, lumbar region (03/21/20) Other spondylosis with radiculopathy, lumbosacral region (03/21/20) Spinal stenosis, lumbar region without neurogenic claudication (03/21/20) Surgery Performed Operation Date: 03/21/20 07:45 Actual Procedures p L3-4, L4-5 TLIF w/ posterior instrumentation - Adrian Kang MD Physical Therapy Treatment Note M2 PT-IP Current Condition Start: 03/21/20 16:41 Freq: NEEDED Status: Active Protocol: Document 03/21/20 15:20 AB (Rec: 03/21/20 16:58 AB [id number]) Physical Therapy Current Condition Current Condition Evaluation Date 03/21/20 Treatment Diagnosis L3-4,L4-5 posterolateral/post. fusion; lami; difficulty in walking Onset Date 03/21/20 Precautions Lumbar Precautions Log Roll,No Twisting,Limit Bending,Lifting Restriction of 10 lbs,Gait Belt above Incisional Area M3 PT-IP Subjective Start: 03/21/20 16:41 Freq: NEEDED Status: Active Protocol: Document 03/23/20 10:16 KS (Rec: 03/23/20 13:02 KS [id number]) Subjective Physical Therapy Visit Type Type Treatment Note Visit Start Time 10:16 Visit Stop Time 10:39 Total Visit Minutes 23 Number of [employer] TE[employer] MANAGER Visits 2 Physical Therapy Visit Comments Patient Comments Pt agreeable to work w/ therapy. Therapy Pain Assessment Pain When Pain Assessed During Mobility Pain Present Pain Present Pain Reported Location back Scale Used no number given Pain Behaviors Facial Grimacing,Guarding, Wincing Pain Management Techniques Modification of Treatment,Re- positioning,Timing of Activity with Medications M4 PT-IP Mobility and Gait Start: 03/21/20 16:41 Freq: NEEDED Status: Active Protocol: Document 03/23/20 10:16 KS (Rec: 03/23/20 13:02 KS [id number]) PT-Bed Mobility Assessment Rolling Type of Rolling Log Rolling Level of Assist Contact Guard Assistance,1 Person Assistance Sit to Supine Sit to Supine Contact Guard Assistance,1 Person Assistance Scooting Scooting to Edge of Bed Contact Guard Assistance PT-Transfer Assessment Sit to and From Stand Sit to and from Stand Contact Guard Assistance, Minimal Assistance,1 Person Assistance,Use of Upper Extremities Equipment Transfer Assistive Device Gait Belt,Front Wheeled Walker Orthotic/Prosthetic Devices or Brace: No Transfers Transfer Destination Bed Transfer Technique ambulated using 4WW Transfer Ability Level of Assist Contact Guard Assistance,1 Person Assistance,Use of Upper Extremities Comments Mobility Comments Pt in chair upon arrival from therapy w/ SO in room. Pt CGA for scooting to edge of chair and CGA to Min A for sit<> stand w/ cues for hand placement. Demonstrated application of gait belt to pts SO. Pt then performed 1 min weight shifting followed by [address] prior to ambulation. Pt then ambulated ~30 ft w/ FWW and CGA around room. Pt ambulated slowly and needs frequent cues for upright posture and quad activation. Pt then stand<>sit EOB and performed logroll back into bed CGA. Pt left w/ nurse. Gait Assessment Gait Gait Assistance Required: Contact Guard Assist,1 Person Assist Distance (Feet) 30 Able to Maintain Weight Bearing Status Yes During Gait Assistive Devices Assistive Device Gait Belt,4 Wheeled Walker Orthotic/Prosthetic Devices or Brace: No Gait Deviations General Gait Pattern Antalgic,Decreased Stride Length,Decreased Feet Clearance,Step-to Gait Factors Limiting Gait Function Factors Limiting Gait Function Decreased Activity Tolerance, Decreased Strength,Limited Range of Motion,Pain,Poor Balance Comments Gait Comments Please refer to mobiltiy section for details. PT-Balance Assessment Sitting Balance and Reactions Static Sitting Balance Ability Good Dynamic Sitting Balance Ability Good Standing Balance and Reactions Static Standing Balance Ability Fair Dynamic Standing Balance Ability Fair Device Used FWW M5 PT-IP Objective Assessments Start: 03/21/20 16:41 Freq: NEEDED Status: Active Protocol: Document 03/21/20 15:20 AB (Rec: 03/21/20 16:58 AB [id number]) Orientation Orientation/Cognition Level of Alertness Alert Orientation Name,Place,Situation Safety Awareness Decreased Safety Awareness Memory Description No Deficits Noted Gross Range of Motion Lower Extremity ROM Assessment Within Functional Limits Strength Lower Extremity Strength Assessment Within Functional Limits Coordination Assessment Gross Coordination Gross Coordination WNL Sensation Assessment Sensation Gross Sensation WNL Muscle Tone Muscle Tone WNL Yes M6 PT-IP Treatment Start: 03/21/20 16:41 Freq: NEEDED Status: Active Protocol: Document 03/23/20 10:16 KS (Rec: 03/23/20 13:02 KS [id number]) Physical Therapy Treatment Exercises Exercises Ankle Pumps Education Education Provided Precautions,Post-Op Packet, Safety M7 PT-IP Assessment and Plan Start: 03/21/20 16:41 Freq: NEEDED Status: Active Protocol: Document 03/23/20 10:16 KS (Rec: 03/23/20 13:02 KS [id number]) PT Summary Assessment and Plan Potential Rehabilitation Potential Good Summary Impairments Pain,ROM,Strength,Balance, Coordination,Bed Mobility, Transfers,Gait,Activity Tolerance Progress Towards Goals Slow Progress due to Pain Assessment Summary Pt CGA for logroll and scooting EOB, CGA to Min A for sit<>stand. Pt unable to tolerate increased ambulation distance today d/t pain and BLE weakness. Initiated caregiver training, however unable to complete d/t pts low tolerance for activity. Pt would benefit from continued therapy and ambulation training and will require completion of caregiver training before d/c and would benefit from HHPT to improve strength and mobility. May require SNF if pt does not show progress. Goals Bed Mobility Goal Independent Transfer Goal Independent,Front Wheeled Walker,Four Wheeled Walker Gait Goal Independent,Front Wheel Walker ,Four Wheel Walker Gait Distance 150 Days to Meet Goals 5 Frequency of Treatment Frequency Of Treatment Twice a Day Treatment Plan Physical Therapy Treatment Plan Bed Mobility Training,Transfer Training,Gait Training, Therapeutic Exercise,Balance Retraining,Post Op Education, Discharge Planning,Hot or Cold Pack,Neuromuscular Re-ed, Coordination Retraining,Manual Therapy Recommendations To Nursing Amount of Assist Needed 1 Person Assist Discharge Recommendations PT Discharge Recommendations Home with Assistance,Home Health,SNF Rehab Equipment Needed for Home Before FWW if not safe with 4WW Discharge Transportation Needs at Discharge Private Vehicle,Wheelchair/ Cabulance
--- NOTE | 2020-03-23 11:06 | OT.IP.TRT ---
Current Diagnoses Spondylolisthesis, lumbar region (03/21/20) Other spondylosis with radiculopathy, lumbosacral region (03/21/20) Spinal stenosis, lumbar region without neurogenic claudication (03/21/20) Surgery Performed Operation Date: 03/21/20 07:45 Actual Procedures p L3-4, L4-5 TLIF w/ posterior instrumentation - Adrian Kang MD Occupational Therapy Treatment Note M2 OT-IP Current Condition Start: 03/22/20 15:25 Freq: Status: Active Protocol: Document 03/22/20 14:10 CCC (Rec: 03/22/20 15:44 [facility] [id number]) Occupational Therapy Current Condition Current Condition Evaluation Date 03/22/20 Treatment Diagnosis L3-4 posterolateral/post fusion, lami, decreased self care and mobility Post Operative Precautions Lumbar Precautions Log Roll,No Twisting,Limit Bending,Lifting Restriction of 10 lbs,Gait Belt above Incisional Area M3 OT- IP Subjective and Pain Start: 03/22/20 15:25 Freq: Status: Active Protocol: Document 03/23/20 12:16 CGR (Rec: 03/23/20 12:23 CGR [email or web address]) OT- Subjective Occupational Therapy Visit Type Type Progress Note Visit Start Time 10:28 Visit Stop Time 11:06 Total Visit Minutes 38 Notes Pt's present at start of session but left prior to shower. Pt finishing with P.T. when OT entered. OT Pain Assessment Pain When Pain Assessed During Mobility Pain Present Pain Present Pain Reported Location back Intensity 6 Scale Used Numeric (0 - 10) Management Techniques Modification of Treatment, Timing of Activity with Medications M4 OT- IP ADL's Start: 03/22/20 15:25 Freq: Status: Active Protocol: Document 03/23/20 12:16 CGR (Rec: 03/23/20 12:23 CGR [email or web address]) OT [id number] Comments OT Self-Feeding Comments Not meal time OT ADL-Grooming General Evaluation Grooming Ability Standby Assistance Areas Needing Assistance Combing/Brushing Hair Comments OT Grooming Comments seated in chair after shower OT ADL-Oral Care Comments Oral Care Comments Not performed in this session OT ADL-Dressing General Eval Upper Body Dressing Ability Standby Assistance Lower Body Dressing Ability Total Assistance Areas Needing Assistance Socks Comments OT Dressing Comments Pt states that she uses a sock aid at baseline but requested that therapist don socks for her. OT ADL-Toileting Comments OT Toileting Comments not performed OT ADL-Bathing Bathing Type Bathing Type Shower General Evaluation Bathing Ability Minimal Assistance Areas Needing Assistance Retrieving/Setting Up Items, Wash/Dry Back,Wash/Dry Lower Extremities Devices Bathing Equipment Shower Chair with Arms,Grab Bars Comments OT Bathing Comments Pt was able to perform most of her bathing including washing her hair with min assist for LB and back. M5 OT- IP IADL's Start: 03/22/20 15:25 Freq: Status: Active Protocol: Document 03/22/20 14:10 [facility] (Rec: 03/22/20 15:44 [facility] [email or web address]) OT-Instrumental Activities of Daily Living Deficits IADL Deficits Identified Deficits Home Safety Awareness Awareness of Need for Assistance at Home Good Awareness Ability to Problem Solve Emergency Able to Problem Solve Situations Medication Management Medication Management No Deficits Identified Money Management Money Management No Deficits Identified Meal Preparation Meal Preparation Caregiver Provides Assist Box Toe Maker Box Toe Maker Caregiver Provides Assist Driving Driving Caregiver Provides Assist M6 OT- IP Functional Cognition Start: 03/22/20 15:25 Freq: Status: Active Protocol: Document 03/22/20 14:10 [facility] (Rec: 03/22/20 15:44 [facility] [id number]) Cognitive Factors Limiting Selfcare Function Cognitive Ability Level of Alertness Alert Patient Orientation Name,Place,Situation Attention Span Ability Capable of Focused Attention, Capable of Sustained Attention Ability to Follow Commands Able to Follow One Step Commands Memory Description No Deficits Noted Safety Awareness Decreased Ability to Apply Precautions Cognitive Comments Cognitive Assessment Comments Pt initially having difficulty to recall all back precautions and mainly needing reminders to keep form twisting especially while turning around to sit onto her 4WW. OT- Vision and Hearing OT- Hearing Assessment OT- Hearing Assessment WFL M7 OT- IP Mobility and Balance Start: 03/22/20 15:25 Freq: Status: Active Protocol: Document 03/23/20 12:16 CGR (Rec: 03/23/20 12:23 CGR [email or web address]) OT- Bed Mobility Assessment Sit to Supine Sit to Supine Assist Standby Assistance,Bedrails Scooting Scooting to Edge of Bed Standby Assistance OT-Transfer Assessment Sit to and From Stand Sit to and from Stand Contact Guard Assistance Transfers Transfer Ability Contact Guard Assistance Technique Transfer Destination Bed,Chair,Shower Stall Transfer Technique Stand Step Pivot Devices Transfer Assistive Devices Gait Belt,4 Wheeled Walker Comments Mobility Comments Pt with poor endurance with mobility. OT- Balance Assessment Sitting Balance and Reactions Static Sitting Balance Ability Good Dynamic Sitting Balance Ability Fair M8 OT- IP Objective Assessments Start: 03/22/20 15:25 Freq: Status: Active Protocol: Document 03/22/20 14:10 CCC (Rec: 03/22/20 15:44 CCC [email or web address]) OT Gross Range of Motion Upper Extremity Range of Motion Assessment Within Functional Limits M9 OT- IP Assessment and Plan Start: 03/22/20 15:25 Freq: Status: Active Protocol: Document 03/23/20 12:16 CGR (Rec: 03/23/20 12:23 CGR [email or web address]) OT Summary Assessment and Plan Potential Rehabilitation Potential Good Analytic Complexity at Evaluation Low Summary OT Impairments Pain,Balance,Functional Mobility,Grooming,Dressing, Toileting,Bathing,Toilet Transfers,Shower Transfers, Activity Tolerance Progress Towards Goals Progressing Toward Goals Assessment Summary Pt low complexity eval after S /P L3-4, L4-5 postrolateral/ post fusion lami. Pt is progressing towards goals but is currently held back by endurance. Pt fatigues quickly which impacts her safety with functional mobility. Goals Grooming Goal Independent Dressing Goal Independent Toileting Goal Independent Bathing Goal Standby Assistance Toilet Transfer Goal Independent Shower Transfer Goal Independent Patient/Caregiver Education Goal Demonstrate Post-Op Precautions,Caregiver Independent Assisting Patient Days to Meet Goals 5 Frequency of Treatment Frequency Of Treatment Once a Day Treatment Plan OT Treatment Plan ADL Training,Functional Cognition Training,Functional Mobility,Patient/Family Education,Discharge Planning Discharge Recommendations OT Discharge Recommendations Home with Assistance Other Discharge Recommendations Pending progress may benefit from home health. Home Equipment Needs BSC, shower chair, toilet paper aid Transportation Needs at Discharge Private Vehicle
--- NOTE | 2020-03-23 14:06 | PC.NURSE ---
Addendum entered by Bree Kwok R.N. 03/23/20 16:36: Unable to clear P.T. See P.T. notes for details. Dr. Kang's office called to notify. Spoke with Evelyn JAMESON who called Dr. Kang. Per Dr. Kang okay discharge order to be postponed until after she clears P.T. Original Note: Assumed care of pt at 1130. Showered, Drsg changed to coversite. Incision well approximated. Per O.T. may benefit from another day. Awaiting afternoon P.T. to see if pt is cleared to go home. Pt is requiring oxygen at night as she desats with sleep. She states she has had the sleep study but does not tolerate c-pap machine and does not have one. She does say that she ordered an oxygen concentrator at the start of the Covid-19 pandemic in the event that she needs oxygen. She says she will use the oxygen at night and check her sats with a portable pulse-ox. Medicated with PO analgesics per nov. Pt states she prefers IV but knows she cannot go home on IV analgesics and will continue with PO. Calling appropriately for needs.
--- NOTE | 2020-03-23 14:30 | PT-IP ANOTE ---
Pt refused treatment this afternoon x2, reporting high levels of pain and fatigue. Pt agreed to ambulate w/ nursing later today and complete LE strengthening exercises. Will assess progress tomorrow AM.
[2020-03-23] MEDS: SENNOSIDES 8.6 MG TABLET 17.2 MG PO (20:35)
[2020-03-24 00:05] VITALS: BP 129/56; PULSE 93; RESP 20; TEMP 36.3; O2SAT 94
--- NOTE | 2020-03-24 02:02 | PC.NURSE ---
Addendum entered by Candis Branham R.N. 03/24/20 06:11: Noted to have taken oxygen off and RA sat while asleep is 91-92%. Had pain medication at 0506 and now asleep. Original Note: Patient seen and assessed at 0000. Is alert and oriented. Breath sounds with scattered expiratory wheezing; hx of COPD. Placed on oxygen at 0.5L/min per NC as reportedly has sleep apnea and cannot tolerate a CPAP; sat is 94%. HRR. Denies nausea. BT hypoactive and has not had a BM x 4 days; agreeable to prune juice at this time. Is voiding without dysuria, frequency or urgency. Is able to turn herself in bed and needs walker and 1 assist when up to bathroom and is weak and knees buckle if going any distance; is very slow in movements. Dressing to back is CDI. Noted to have extensive bruising across lower back below line of dressing. CMS is intact. Bilateral calf SCD's applied. Complains of 7/10 back pain and was medicated with Dilaudid and is currently asleep. Fall risk score is high and bed alarm is activated.
[2020-03-24 03:27] VITALS: BP 115/60; PULSE 86; RESP 16; TEMP 36; O2SAT 95
[2020-03-24] MEDS: HYDROMORPHONE 2 MG TABLET PO ×3 (05:06→11:17)
[2020-03-24] MEDS: ACETAMINOPHEN 325 MG TABLET 650 MG PO ×2 (05:08→09:00)
[2020-03-24] MEDS: ALBUTEROL/IPRATROPIUM 3 ML AMPUL INH (07:50)
[2020-03-24 08:00] VITALS: BP 132/62; PULSE 85; PULSE 89; RESP 16; TEMP 36.2; O2SAT 95; O2SAT 96
[2020-03-24] MEDS: buPROPion SR 150 MG TAB 300 MG PO (09:00)
[2020-03-24] MEDS: PANTOPRAZOLE 20 MG TABLET PO (09:00)
[2020-03-24] MEDS: MAGNESIUM HYDROXIDE 30 ML UDC PO (09:00)
[2020-03-24] MEDS: PRAVASTATIN 20 MG TABLET 40 MG PO (09:00)
[2020-03-24] MEDS: LOSARTAN 25 MG TABLET PO (09:00)
[2020-03-24] MEDS: DOCUSATE 100 MG CAPSULE PO (09:00)
--- NOTE | 2020-03-24 09:22 | PM.DS.1 ---
History of Present Illness History of Present Illness Date Patient Seen: 03/24/20 Time Patient Seen: 09:22 Chief complaint: *OPB* [id number] Narrative: Pain is been moderate to severe. Denies fever chills. No nausea vomiting. Patient has been ambulating in bills. is home to assist her. Otherwise without complaints this morning. Discharge Providers Provider Date of admission: 03/21/20 06:01 Discharge Date: 03/24/20 Primary care physician: Leslie Tanner MD Consults: 03/14/20 09:43 Consult to Respiratory Therapy Evaluate & Treat Comment: INPT 03/21 0745 COLIN-no CPAP, requests nicotine patch Physician Instructions: Evaluate and treat 03/21/20 07:11 Consult to Respiratory Therapy Evaluate & Treat Comment: Physician Instructions: Evaluate and treat 03/21/20 13:28 Consult to Occupational Therapy Evaluate & Treat Comment: Physician Instructions: Evaluate and treat Consult to Physical Therapy Evaluate & Treat Comment: Physician Instructions: Evaluate and Treat Discharge provider: Chris Hernandez PA-C Summary Hospital Course Discharge Diagnosis: Pre-op diagnosis: 1. L3-4, L4-5 spondylolisthesis 2. L3-4, L4-5 spinal stenosis Hospital Course: Procedure: 1. L3-4, L4-5 Postero-lateral and posterior interbody fusion 2. L3-4, L4-5 interbody cage placement. 3. L3-4, L4-5 decompressive laminectomy with bilateral facetecomies 4. L3-4, L4-5 Posterior segmental instrumentation 5. [place] of bone marrow from iliac crest 6. Utilization of microsurgical technique and operating microscope Same procedure as scheduled: Yes Indications: Patient has been having chronic back pain and worsening lumbar radiculopathy. Patient failed multiple conservative management with worsening pain weakness and numbness in her lower extremity. Patient has been having difficulty performing activity of daily living. After discussing risks benefits of treatment options, patient elected proceed with surgery. Surgeon: Adrian Kang Photographer Aerial: Linda Kline Click Yes if Unassisted: No Anesthesia Type: General Operative Notes Closure Type: primary Specimen(s): none sent Prosthetic devices, grafts, tissues, transplants, or devices: Globus revolve screws, Rise cages Applied: catheter Estimated Blood Loss (mL): 150 Blood products transfused: none Continue work on pain control. Patient's remained stable throughout her stay. is home to assist her. Discharge home today in stable condition. Status at Discharge Cognitive/behavioral status at discharge: at baseline, oriented Functional status at discharge: uses cane/walker Overall status at discharge: patient is progressing back to baseline Time Spent with Patient Time spent: Less than 30 minutes Exam Vital Signs (past 8 hours): - 03/24/20 03:27 03/24/20 08:00 Temperature 96.8 F L Pulse Rate 86 85 Respiratory Rate 16 16 Blood Pressure 115/60 Pulse Oximetry 95 96 Oxygen Delivery Method Room Air Oxygen Flow Rate 0.5 Narrative Exam Narrative: Pleasant 75-year-old female resting comfortably in bed in no apparent distress. Neurovascular status is intact bilateral lower extremities. Both legs are warm and dry. Good capillary refill. Able to wiggle toes and dorsiflex, plantar flex ankles. Lumbar dressing is clean, dry and intact Objective Labs Result Diagrams: 03/22/20 05:50 Discharge Plan Discharge Plan Patient Disposition: Home Discharge orders & Medications Prescriptions: New hydromorphone 2 mg Tablet 2 - 4 mg PO Q4-5H PRN (Reason: Pain, Severe (7-10)) Qty: 70 RF: 0 hydroxyzine pamoate 25 mg Capsule 25 mg PO Q4HR PRN (Reason: Nausea And Vomiting) Qty: 40 RF: 0 Continued bupropion HCl 150 mg Tablet Sustained-Release 12 Hr 300 mg PO DAILY RF: 0 ipratropium-albuterol 0.5 mg-3 mg(2.5 mg base)/3 mL Solution For Nebulization 3 ml INHALATION TID RF: 0 pravastatin 40 mg Tablet 40 mg PO DAILY RF: 0 losartan 25 mg Tablet 25 mg PO DAILY RF: 0 omeprazole 20 mg Capsule,Delayed Release(Dr/Ec) 20 mg PO BID RF: 0 albuterol sulfate 90 mcg/actuation Hfa Aerosol Inhaler 2 puff INHALATION Q4-6H PRN (Reason: Shortness Of Breath) RF: 0 lorazepam 1 mg Tablet 0.5 mg PO DAILY PRN (Reason: Anxiety) RF: 0 Landrum Orotate 120 mg 240 mg PO BID RF: 0 Discontinued prednisone 10 mg Tablet 10 mg PO DAILY PRN (Reason: Back Pain) RF: 0 Follow up/Referrals: Leslie Tanner MD [Primary Care Provider] - Adrian Kang MD [Physician] - (SNO 2 wks) Discharge Health Status Multidrug resistant organism: No MDRO Diet/Activity/Treatments Diet: Diet as Tolerated and Regular Activity: Limit bending twisting lifting Skin/Wound/Dressing Care Report to your healthcare provider any signs of infection, such as:: chills, fever, night sweats, increased pain, unusual drainage and unusual redness Dressing: Keep dressing clean dry intact Visit Report/Discharge Packet Instructions: DI for Prescription Opioid Use, DI for Transforaminal Lumbar Interbody Fusion Stand Alone Forms: Surgery Discharge Visit Report Forms: Patient Portal/API, Stroke Signs & Symptoms Discharge Data Primary Care Provider: Leslie Tanner VTE Deep Vein Thrombosis/Pulmonary Embolism Present on Admission: No
[2020-03-24] MEDS: LITHIUM OROTATE 2 EACH PO (09:25)
[2020-03-24] MEDS: SODIUM CHLORIDE 0.9% FLUSH 10 ML IV (09:26)
--- NOTE | 2020-03-24 10:12 | OT.IP.TRT ---
Current Diagnoses Spondylolisthesis, lumbar region (03/21/20) Other spondylosis with radiculopathy, lumbosacral region (03/21/20) Spinal stenosis, lumbar region without neurogenic claudication (03/21/20) Surgery Performed Operation Date: 03/21/20 07:45 Actual Procedures p L3-4, L4-5 TLIF w/ posterior instrumentation - Adrian Kang MD Occupational Therapy Treatment Note M2 OT-IP Current Condition Start: 03/22/20 15:25 Freq: Status: Active Protocol: Document 03/22/20 14:10 [facility] (Rec: 03/22/20 15:44 [facility] [email or web address]) Occupational Therapy Current Condition Current Condition Evaluation Date 03/22/20 Treatment Diagnosis L3-4 posterolateral/post fusion, lami, decreased self care and mobility Post Operative Precautions Lumbar Precautions Log Roll,No Twisting,Limit Bending,Lifting Restriction of 10 lbs,Gait Belt above Incisional Area M3 OT- IP Subjective and Pain Start: 03/22/20 15:25 Freq: Status: Active Protocol: Document 03/24/20 12:47 [facility] (Rec: 03/24/20 13:05 [facility] [email or web address]) OT- Subjective Occupational Therapy Visit Type Type Progress Note Visit Start Time 09:46 Visit Stop Time 10:12 Total Visit Minutes 26 Notes Pt getting ready for discharge home. Occupational Therapy Visit Comments Patient Comments I feel better today. OT Pain Assessment Pain When Pain Assessed During Mobility Pain Present Pain Present Pain Reported Location back Intensity 6 Scale Used Numeric (0 - 10) Management Techniques Modification of Treatment, Timing of Activity with Medications M4 OT- IP ADL's Start: 03/22/20 15:25 Freq: Status: Active Protocol: Document 03/24/20 12:47 CGR (Rec: 03/24/20 13:05 CGR [email or web address]) OT [id number] Comments OT Self-Feeding Comments Not meal time OT ADL-Grooming Comments OT Grooming Comments not performed OT ADL-Oral Care Comments Oral Care Comments not performed OT ADL-Dressing General Eval Upper Body Dressing Ability Independent Lower Body Dressing Ability Minimal Assistance Areas Needing Assistance Bra,Pull-Over Shirt,Underpants /Brief,Pants/Shorts,Socks Assistive Devices Dressing Assistive Devices Psychiatry Physician Comments OT Dressing Comments Pt used a electric refrigerator servicer for LB dressing for min a and socks with max a. OT ADL-Toileting General Evaluation Toileting Ability Standby Assistance Devices Toileting Assistive Devices Commode,Grab Bars Comments OT Toileting Comments Urinated seated OT ADL-Bathing Comments OT Bathing Comments Not performed M5 OT- IP IADL's Start: 03/22/20 15:25 Freq: Status: Active Protocol: Document 03/22/20 14:10 [facility] (Rec: 03/22/20 15:44 [facility] [email or web address]) OT-Instrumental Activities of Daily Living Deficits IADL Deficits Identified Deficits Home Safety Awareness Awareness of Need for Assistance at Home Good Awareness Ability to Problem Solve Emergency Able to Problem Solve Situations Medication Management Medication Management No Deficits Identified Money Management Money Management No Deficits Identified Meal Preparation Meal Preparation Caregiver Provides Assist Central Office Installer Central Office Installer Caregiver Provides Assist Driving Driving Caregiver Provides Assist M6 OT- IP Functional Cognition Start: 03/22/20 15:25 Freq: Status: Active Protocol: Document 03/22/20 14:10 [facility] (Rec: 03/22/20 15:44 [facility] [email or web address]) Cognitive Factors Limiting Selfcare Function Cognitive Ability Level of Alertness Alert Patient Orientation Name,Place,Situation Attention Span Ability Capable of Focused Attention, Capable of Sustained Attention Ability to Follow Commands Able to Follow One Step Commands Memory Description No Deficits Noted Safety Awareness Decreased Ability to Apply Precautions Cognitive Comments Cognitive Assessment Comments Pt initially having difficulty to recall all back precautions and mainly needing reminders to keep form twisting especially while turning around to sit onto her 4WW. OT- Vision and Hearing OT- Hearing Assessment OT- Hearing Assessment WFL M7 OT- IP Mobility and Balance Start: 03/22/20 15:25 Freq: Status: Active Protocol: Document 03/24/20 12:47 CGR (Rec: 03/24/20 13:05 [facility]GR [email or web address]) OT- Bed Mobility Assessment Rolling Type of Rolling Roll to Left Level of Assistance Standby Assistance Supine to Sit Supine to Sit Assist Standby Assistance Scooting Scooting to Edge of Bed Standby Assistance OT-Transfer Assessment Sit to and From Stand Sit to and from Stand Standby Assistance,Contact Guard Assistance Transfers Transfer Ability Standby Assistance,Contact Guard Assistance Technique Transfer Destination Bed,Chair,Toilet Transfer Technique Stand Step Pivot Devices Transfer Assistive Devices Gait Belt,4 Wheeled Walker OT- Gait Assessment Gait Gait Assistance Required: Contact Guard Assist Assistive Devices Assistive Device Gait Belt,Front Wheeled Walker OT- Balance Assessment Sitting Balance and Reactions Static Sitting Balance Ability Good Dynamic Sitting Balance Ability Fair M8 OT- IP Objective Assessments Start: 03/22/20 15:25 Freq: Status: Active Protocol: Document 03/22/20 14:10 [facility] (Rec: 03/22/20 15:44 [facility] [email or web address]) OT Gross Range of Motion Upper Extremity Range of Motion Assessment Within Functional Limits M9 OT- IP Assessment and Plan Start: 03/22/20 15:25 Freq: Status: Active Protocol: Document 03/24/20 12:47 CGR (Rec: 03/24/20 13:05 CGR [email or web address]) OT Summary Assessment and Plan Potential Rehabilitation Potential Good Analytic Complexity at Evaluation Low Summary OT Impairments Pain,Balance,Functional Mobility,Grooming,Dressing, Toileting,Bathing,Toilet Transfers,Shower Transfers, Activity Tolerance Progress Towards Goals Progressing Toward Goals Assessment Summary Pt low complexity eval after S /P L3-4, L4-5 postrolateral/ post fusion lami. Pt is progressing towards goals and states that she is feeling better today. Pt demonstrated increased indurance with activities and is planned for discharge home. Goals Grooming Goal Independent Dressing Goal Independent Toileting Goal Independent Bathing Goal Standby Assistance Toilet Transfer Goal Independent Shower Transfer Goal Independent Patient/Caregiver Education Goal Demonstrate Post-Op Precautions,Caregiver Independent Assisting Patient Days to Meet Goals 4 Frequency of Treatment Frequency Of Treatment Once a Day Treatment Plan OT Treatment Plan ADL Training,Functional Cognition Training,Functional Mobility,Patient/Family Education,Discharge Planning Discharge Recommendations OT Discharge Recommendations Home with Assistance Other Discharge Recommendations Pending progress may benefit from home health. Home Equipment Needs BSC, shower chair, toilet paper aid Transportation Needs at Discharge Private Vehicle
--- NOTE | 2020-03-24 10:25 | CM.DPC ---
DCP: continued: Dr. Kang had pt stay on yesterday as she was not cleared for home setting by PT and OT. She has worked with therapy again today including caregiver training with her partner and is going home this morning. Routine orthopedic followup is planned.
--- NOTE | 2020-03-24 10:52 | PT.IPTN ---
Current Diagnoses Spondylolisthesis, lumbar region (03/21/20) Other spondylosis with radiculopathy, lumbosacral region (03/21/20) Spinal stenosis, lumbar region without neurogenic claudication (03/21/20) Surgery Performed Operation Date: 03/21/20 07:45 Actual Procedures p L3-4, L4-5 TLIF w/ posterior instrumentation - Adrian Kang MD Physical Therapy Treatment Note M2 PT-IP Current Condition Start: 03/21/20 16:41 Freq: NEEDED Status: Discharge Protocol: Document 03/21/20 15:20 AB (Rec: 03/21/20 16:58 AB [id number]) Physical Therapy Current Condition Current Condition Evaluation Date 03/21/20 Treatment Diagnosis L3-4,L4-5 posterolateral/post. fusion; lami; difficulty in walking Onset Date 03/21/20 Precautions Lumbar Precautions Log Roll,No Twisting,Limit Bending,Lifting Restriction of 10 lbs,Gait Belt above Incisional Area M3 PT-IP Subjective Start: 03/21/20 16:41 Freq: NEEDED Status: Discharge Protocol: Document 03/24/20 10:28 [place] (Rec: 03/24/20 12:27 KS [id number]) Subjective Physical Therapy Visit Type Type Treatment Note Visit Start Time 10:28 Visit Stop Time 10:52 Total Visit Minutes 24 Number of BRIDGE IRONWORKER HELPER Visits 3 Physical Therapy Visit Comments Patient Comments Pt agreeable to work w/ therapy. Pts SO present for caregiver training Therapy Pain Assessment Pain When Pain Assessed At Rest Pain Present Pain Present Denied Pain M4 PT-IP Mobility and Gait Start: 03/21/20 16:41 Freq: NEEDED Status: Discharge Protocol: Document 03/24/20 10:28 [place] (Rec: 03/24/20 12:27 [place] [id number]) PT-Bed Mobility Assessment Rolling Type of Rolling Log Rolling Level of Assist Contact Guard Assistance,1 Person Assistance Supine to Sit Supine to Sit Contact Guard Assistance,1 Person Assistance Sit to Supine Sit to Supine Contact Guard Assistance,1 Person Assistance Scooting Scooting to Edge of Bed Standby Assistance PT-Transfer Assessment Sit to and From Stand Sit to and from Stand Contact Guard Assistance,1 Person Assistance,Use of Upper Extremities Equipment Transfer Assistive Device Gait Belt,Front Wheeled Walker Orthotic/Prosthetic Devices or Brace: No Transfers Transfer Destination Bed Transfer Technique ambulated using FWW Transfer Ability Level of Assist Contact Guard Assistance,1 Person Assistance,Use of Upper Extremities Comments Mobility Comments Pt in chair upon arrival and SO Mariano present for caregiver training. Pt able to recall 3 /3 precautions. Pts caregiver successfully applied gait belt w/ cues for proper tightness and then provided pt CGA for sit<>stand. Pt then ambulated to bed w/ FWW and CGA and performed logroll into and out of bed CGA provided correctly by caregiver. Pt then stand<> sit from bed w/ FWW and CGA by Mariano and ambulated ~80 ft w/ FWW CGA. Pts caregiver able to safely provide CGA and necessary cues to pt while ambulating. Pt showed improvement w/ tolerance for ambulation today. Pt returned to room and chair CGA all provided by caregiver. Pt and caregiver stated they both feel safe to return home. Discussed outpatient therapy w / patient for LE and core strengthening to protect spine . Gait Assessment Gait Gait Assistance Required: Contact Guard Assist,1 Person Assist Distance (Feet) 80 Able to Maintain Weight Bearing Status Yes During Gait Assistive Devices Assistive Device Gait Belt,Front Wheeled Walker Orthotic/Prosthetic Devices or Brace: No Gait Deviations General Gait Pattern Antalgic,Decreased Stride Length,Decreased Feet Clearance,Step-to Gait Factors Limiting Gait Function Factors Limiting Gait Function Decreased Activity Tolerance, Decreased Strength,Limited Range of Motion,Pain,Poor Balance Comments Gait Comments Please refer to mobiltiy section for details. PT-Balance Assessment Sitting Balance and Reactions Static Sitting Balance Ability Good Dynamic Sitting Balance Ability Good Standing Balance and Reactions Static Standing Balance Ability Good Dynamic Standing Balance Ability Fair Device Used FWW M5 PT-IP Objective Assessments Start: 03/21/20 16:41 Freq: NEEDED Status: Discharge Protocol: Document 03/21/20 15:20 AB (Rec: 03/21/20 16:58 AB [id number]) Orientation Orientation/Cognition Level of Alertness Alert Orientation Name,Place,Situation Safety Awareness Decreased Safety Awareness Memory Description No Deficits Noted Gross Range of Motion Lower Extremity ROM Assessment Within Functional Limits Strength Lower Extremity Strength Assessment Within Functional Limits Coordination Assessment Gross Coordination Gross Coordination WNL Sensation Assessment Sensation Gross Sensation WNL Muscle Tone Muscle Tone WNL Yes M6 PT-IP Treatment Start: 03/21/20 16:41 Freq: NEEDED Status: Discharge Protocol: Document 03/24/20 10:28 [place] (Rec: 03/24/20 12:27 [place] [id number]) Physical Therapy Treatment Exercises Exercises Ankle Pumps,Gluteal Sets,Quad Sets Education Education Provided Precautions,Post-Op Packet, Safety Other Treatments Other Treatment Performed Discussed outpatient therapy, completed caregiver training. M7 PT-IP Assessment and Plan Start: 03/21/20 16:41 Freq: NEEDED Status: Discharge Protocol: Document 03/24/20 10:28 KS (Rec: 03/24/20 12:27 KS [id number]) PT Summary Assessment and Plan Potential Rehabilitation Potential Good Summary Impairments Pain,ROM,Strength,Balance, Coordination,Bed Mobility, Transfers,Gait,Activity Tolerance Progress Towards Goals Slow Progress due to Pain Assessment Summary Completed caregiver training w / pt and pts SO Mariano who was able to safely and appropriately provide CGA and cues when necessary. Pt CGA for bed mobility and ambulation. Pt had increased tolerance for ambulation this afternoon. Encouraged pt to seek outpatient rehab to improve LE and core strength to protect spine. Goals Bed Mobility Goal Independent Transfer Goal Independent,Front Wheeled Walker,Four Wheeled Walker Gait Goal Independent,Front Wheel Walker ,Four Wheel Walker Gait Distance 150 Days to Meet Goals 5 Frequency of Treatment Frequency Of Treatment Twice a Day Treatment Plan Physical Therapy Treatment Plan Bed Mobility Training,Transfer Training,Gait Training, Therapeutic Exercise,Balance Retraining,Post Op Education, Discharge Planning,Hot or Cold Pack,Neuromuscular Re-ed, Coordination Retraining,Manual Therapy Recommendations To Nursing Amount of Assist Needed 1 Person Assist Discharge Recommendations PT Discharge Recommendations Home with Assistance,Home Health,SNF Rehab,Outpatient PT Equipment Needed for Home Before FWW if not safe with 4WW Discharge Transportation Needs at Discharge Private Vehicle,Wheelchair/ Cabulance
--- NOTE | 2020-03-24 11:22 | PC.NURSE ---
Day shift: Pt left unit via [facility] w/ Abby CHAPPELL Emiliano to car driven by her spouse. The drfive will be a long one to [place]. Medicated with pain med per DMITRY mendoza prior to d/c. Encouraged fPt to take a vistaril this evening as it may help with pain and alllow her to sleep some. Paperwork signed and all questions answered. Pt has MD jones. Pt also has all personal belongings.
== END 2020-03-24 11:24 | disposition home or self-care (01) | DRG 455 ==
LOC: OR 06:07 → AC 06:08
PROVIDERS: Admitting Provider Orthopaedic Surgery Orthopaedic Surgery of the Spine; PCP Internal Medicine; Referring Provider Internal Medicine; Visit Provider Orthopaedic Surgery Orthopaedic Surgery of the Spine
PROC: 0SG10AJ Fusion of 2 or more Lumbar Vertebral Joints with Interbody Fusion Device, Posterior Approach, Anterior Column, Open Approach (ICD-10-PCS; principal; 2020-03-21 07:45)
DX: M43.16 Spondylolisthesis, lumbar region (principal); M47.27 Other spondylosis with radiculopathy, lumbosacral region; M48.061 Spinal stenosis, lumbar region without neurogenic claudication; I10 Essential (primary) hypertension; F17.210 Nicotine dependence, cigarettes, uncomplicated; J44.9 Chronic obstructive pulmonary disease, unspecified; G47.33 Obstructive sleep apnea (adult) (pediatric); K21.9 Gastro-esophageal reflux disease without esophagitis; Z01.812 Encounter for preprocedural laboratory examination; Z11.59 Encounter for screening for other viral diseases
CPT/HCPCS: 36415; 72100; 76000; 85014; 85018; 87635; 94640; 97116; 97162; 97165; 97530; 97535; C1776; C9290; J0330; J1100; J1170; J2405; J2704; J3010

== ENCOUNTER → 2023-06-04 | Outpatient (CLI) | payer MEDICARE, OTHER, SELFPAY ==
[2020-03-21 13:35] VITALS: BMI 35.6
--- NOTE | 2023-06-04 11:25 | DI.CT.S_ITS ---
PROCEDURE: CT LUMBAR SPINE WO CON INDICATIONS: Spinal stenosis, lumbar region TECHNIQUE: Noncontrast 3 mm thick sections acquired from the T12 level to the sacrum. Sagittal and coronal reformats were constructed. For radiation dose reduction, the following was used: automated exposure control. COMPARISON: [facility], CT, CT LUMBAR SPINE WO CON, 10/14/2019, 14:20. FINDINGS: Image quality: Excellent. Bones: There are 6 non rib-bearing lumbar vertebral bodies. In order to be consistent with prior studies, the lowest 5 vertebrae are described as L1-L5, and the most superior [id number] vertebra is labeled as T12. Interval posterior lateral camacho and pedicle screw fixation with bilateral pedicle screws at L3, L4, and L5. There is also interbody spacer placement at these levels. No evidence of hardware failure or loosening. Additionally, there is been posterior decompression at L3-L4, utilizing left hemilaminectomy.. Trace retrolisthesis of T12 on L1 and of L1 on L2. Decreased anterolisthesis of L4 on L5, previously measuring 7 mm and currently measuring 5 mm. No acute vertebral body compression fractures. No suspicious lytic or blastic bony lesions. No pars defects. T12-L1: No canal stenosis or foraminal stenosis. L1-L2: No canal stenosis or foraminal stenosis. L2-L3: No canal stenosis or foraminal stenosis. L3-L4: Interval posterior lateral fusion and interbody fusion. Decompressive laminectomy. Resolution of canal stenosis. [id number] bilateral foraminal stenosis secondary to osteophytes off the facet joints. L4-L5: Interval posterior lateral fusion and interbody fusion. Interval development of bulky right lateral recess osteophyte inferior to the exiting right L4 nerve root. Reference current sagittal image 28 of series 9 and axial image 244 of series 2 compared to previous sagittal image 21 of series 5 and axial image 69 series 2. The results is persistent significant right lateral recess stenosis. Mild central canal stenosis. [id number] bilateral foraminal stenosis. L5-S1: No canal stenosis or foraminal stenosis. Soft tissues: No retroperitoneal masses or hematomas. Visualized aorta is normal in caliber. IMPRESSION: 1. Interval posterior lateral fusion at L3 through L5 bilaterally and decompressive surgery at L3-L4. 2. Resolution of canal stenosis at L3-L4. 3. At L4-L5, there is interval decrease in anterolisthesis of L4 on L5. There is interval development of a bulky right lateral recess osteophyte below the exiting right L4 nerve root resulting in persistent right lateral recess stenosis. Comment: Note is made of the numbering system utilized on this dictation, which mirrors previous dictations. Dictated by: Johan Mendez M.D. on 06/05/2023 at 7:47 Approved by: Johan Mendez M.D. on 06/05/2023 at 8:00
== END ==
PROVIDERS: PCP Internal Medicine; Referring Provider Orthopaedic Surgery Orthopaedic Surgery of the Spine; Visit Provider Orthopaedic Surgery Orthopaedic Surgery of the Spine
DX: M48.062 Spinal stenosis, lumbar region with neurogenic claudication (principal); Z98.1 Arthrodesis status
CPT/HCPCS: 72131